=== PATIENT | male | born 1990 | race Caucasian/White ===

== ENCOUNTER 2019-12-22 09:00 | Inpatient (IN) ==
--- NOTE | 2019-12-22 09:57 | PROVIDER DOCUMENTATION ---
This chart was entered by Ashely Russo Scribe, acting as scribe for Kacy Fletcher CRNP. HPI-General Adult - General Chief Complaint: Extremity Pain Stated Complaint: EXTREMITY PAIN-RIGHT LEG Time Seen by Provider: 12/22/19 09:06 Source: patient Allergies/Adverse Reactions: Patient Allergies Allergy/AdvReac Type Severity Reaction Status Date / Time cefdinir Allergy HIVES Verified 12/22/19 09:37 Penicillins Allergy HIVES Verified 12/22/19 09:37 Home Medications: Home Medication List Medication Instructions Recorded Confirmed Last Taken Type Amlodipine Besylate 1 tab PO DAILY 12/22/19 12/22/19 12/21/19 History Furosemide [Lasix] 1 tab PO DAILY 12/22/19 12/22/19 12/21/19 History Gabapentin 1 cap PO TID 12/22/19 12/22/19 12/21/19 History Potassium Chloride 1 tab PO DAILY 12/22/19 12/22/19 12/21/19 History - History of Present Illness -Gen Adult Nature of Presenting Problems: 29 y/o male presents to the ED with complaint of right leg and foot swelling, pain, and erythema since 0500 this am. The patient states no long trips or flights but states he sits more than he should due to having muscular dystrophy. Denies recent injury but states he did have injury and a large amount of bruising to his right upper posterior leg in August. Location of Pain/Injury: reports: lower extremity (right) Onset/Duration: reports: this morning (0500) Timing: reports: still present Context/Activities at Onset: reports: sleep Modifying Factors: improves with: nothing Associated Symptoms: denies: fever/chills, shortness of breath, vomiting Similar Symptoms Previously?: No Recently seen or treated by another doctor?: No Review of Systems - Adult - REVIEW OF SYSTEMS - ADULT Constitutional: denies: chills, fever, weight loss Eyes: reports: no symptoms reported Ears, Nose, Mouth & Throat: reports: no symptoms reported Cardiovascular: reports: no symptoms reported Respiratory: reports: no symptoms reported Gastrointestinal: denies: diarrhea, nausea, vomiting Genitourinary: reports: no symptoms reported Musculoskeletal: reports: other (right lower extremity redness, swelling, and pain). denies: back pain, neck pain Integumentary: reports: no symptoms reported Neurological: reports: no symptoms reported Psychiatric: reports: no symptoms reported Endocrine: reports: no symptoms reported Hematologic/Lymphatic: reports: no symptoms reported Allergic/Immunologic: reports: no symptoms reported All Other Systems: Reviewed and Negative Past History - Adult - PAST MEDICAL HISTORY-ADULT Review of Records: reports: Old Records Reviewed, Nursing Assessment Review, Medications Reviewed Major Childhood Illnesses: reports: denies history Cardiovascular: reports: denies history Respiratory: reports: denies history Gastrointestinal: reports: denies history Obstetrical/Gynecological: reports: denies history Genitourinary: reports: denies history Musculoskeletal: reports: denies history Neurological: reports: denies history Endocrine/Immune: reports: denies history Other Conditions: reports: denies history - PRIOR SURGERIES/PROCEDURES Surgical/Procedure History: reports: none - IMMUNIZATION STATUS Childhood Immunizations: See Nurse Assessment Flu Vaccine: See Nurse Assessment - FAMILY HISTORY Family History: reviewed, not pertinent - SOCIAL HISTORY Smoking: quit greater than 1 year Physical Exam-General - PHYSICAL EXAM-ADULT Initial Vital Signs Reviewed: Yes - CONSTITUTIONAL General Appearance: alert, no apparent distress - NECK Neck: full range of motion, supple - MUSCULOSKELETAL Extremity: erythema (right lower leg), swelling (right lower leg and right foot) , tenderness (right lower leg), other (right lower leg warm to touch) - SKIN Integumentary: erythema (right lower leg), swelling (right lower leg and right foot), warm (right lower leg). negative: diaphoresis - NEUROLOGIC Neurologic: grossly normal - PSYCHIATRIC Psych/Mental Status: normal mood/affect, oriented x 3 Progress - PLAN OF CARE/RESULTS Progress/Plan/Lab Results: Vital Signs - 8 hr 12/22/19 09:13 Temperature 99.2 F Pulse Rate 93 H Respiratory Rate 18 Blood Pressure 118/76 O2 Sat by Pulse Oximetry 98 Laboratory Tests 12/22/19 12/22/19 12/22/19 10:12 10:12 10:12 WBC 14.69 H RBC 5.06 Hgb 14.7 Hct 44.0 MCV 87.0 MCH 29.1 MCHC 33.4 RDW Std Deviation 14.1 Plt Count 307 MPV 9.3 Immature Gran % (Auto) 0.2 Neut % (Auto) 81.8 H Lymph % (Auto) 10.4 L Stone % (Auto) 6.4 Eos % (Auto) 1.0 Baso % (Auto) 0.2 Immature Gran # (Auto) 0.03 Neut # (Auto) 12.02 H Lymph # (Auto) 1.53 Stone # (Auto) 0.94 H Eos # (Auto) 0.14 Baso # (Auto) 0.03 D-Dimer, Quantitative Sodium 140 Potassium 3.7 Chloride 100 Carbon Dioxide 25 Anion Gap 15 BUN 6 L Creatinine 0.3 L Estimated GFR/1.73 m2 > 60 BUN/Creatinine Ratio 20 Glucose 106 H Calculated Osmolality 277 Calcium 9.1 Total Bilirubin 1.30 H AST 31 ALT 64 H Alkaline Phosphatase 91 Mhl-D-Cujsbfeivwe Pept 12 Total Protein 7.5 Albumin 4.2 Globulin 3.0 Albumin/Globulin Ratio 1.0 Plasma Lactate 12/22/19 12/22/19 10:12 10:12 WBC RBC Hgb Hct MCV MCH MCHC RDW Std Deviation Plt Count MPV Immature Gran % (Auto) Neut % (Auto) Lymph % (Auto) Stone % (Auto) Eos % (Auto) Baso % (Auto) Immature Gran # (Auto) Neut # (Auto) Lymph # (Auto) Stone # (Auto) Eos # (Auto) Baso # (Auto) D-Dimer, Quantitative < 0.27 Sodium Potassium Chloride Carbon Dioxide Anion Gap BUN Creatinine Estimated GFR/1.73 m2 BUN/Creatinine Ratio Glucose Calculated Osmolality Calcium Total Bilirubin AST ALT Alkaline Phosphatase Goq-I-Vkvfcvvhmdt Pept Total Protein Albumin Globulin Albumin/Globulin Ratio Plasma Lactate 2.6 H Result Diagrams: 12/22/19 10:12 12/22/19 10:12 - XRAY 1 XRAY: Right XRAY Study: Tibia/Fibula (EXAM: LOWER LEG-RIGHT - 12/22/2019 HISTORY: swelling and pain TECHNIQUE: Right lower leg four views COMPARISON: None. FINDINGS: There is no fracture identified. There are no erosive or destructive changes identified. There is no opaque foreign body identified. There is mild calcaneal spurring noted at the Achilles tendon insertion. IMPRESSION: No visible acute bony abnormality. Electronically signed by Clive Taylor 12/22/2019 10:16 AM) XRAY Interpretation: See note - CONSULTS/PCP/HOSPITALIST Notification #1 *Consult/PCP/Hospitalist*: Dr. Tran Time Discussed: 10:59 Reason/Comments: admission Consult Disposition: Will see in ED, Admit Departure - Departure Date of Disposition Decision: 12/22/19 Time of Disposition Decision: 10:53 DIAGNOSIS: Cellulitis Qualifiers: Site of cellulitis: extremity Site of cellulitis of extremity: lower extremity Laterality: right Qualified Code(s): L03.115 - Cellulitis of right lower limb Disposition: ADMITTED INPATIENT 09 Certified Medical Emergency: Emergent Condition: Stable Referrals and Follow-Ups: Jonah Fletcher MD [Primary Care Provider] - - Critical Care Note This patient required my direct & personal management of CC.: No Attestation - Physician/ VELASQUEZ Attestation Patient care was provided by Advanced Practice Provider:: Yes Advanced Practice Provider:: Kacy Fletcher Advanced Practice Provider documentation review:: The Mid-level provider documentation, treatment plan and medical decision making was reviewed by the physician who agrees with all treatment and medical decision making by the MLP. The physician spent face to face time with patient:: Yes Advanced Practice Provider documentation review:: Supervising physician onsite and consulted in the evaluation and care of this patient. The physician did have a face to face encounter with the patient. This chart was documented by the indicated scribe, (Ashely Russo, Rupali) and accurately reflects the services I performed and decisions made by me, Kacy Fletcher CRNP, as attested by the provider's signature.
--- NOTE | 2019-12-22 10:18 | Diag Imaging Result Doc PS360 ---
EXAM: LOWER LEG-RIGHT - 12/22/2019 HISTORY: swelling and pain TECHNIQUE: Right lower leg four views COMPARISON: None. FINDINGS: There is no fracture identified. There are no erosive or destructive changes identified. There is no opaque foreign body identified. There is mild calcaneal spurring noted at the Achilles tendon insertion. IMPRESSION: No visible acute bony abnormality. Electronically signed by Clive Taylor 12/22/2019 10:16 AM
[2019-12-22] MEDS ORDERED: TYLENOL PO ONE (10:21)
[2019-12-22] MEDS ORDERED: NS 1,000 ML IV ONE (10:23)
[2019-12-22] MEDS ORDERED: VANCOMYCIN 1 GM/NS 1 GM/250 ML IVPB IV ONE ×2 (10:23→11:30)
[2019-12-22 10:27] LABS: BASO# 0.03 X1000 (0.0-0.2); BASO% 0.2 % (0.0-0.8); EOS# 0.14 X1000 (0.0-0.7); HEMOGLOBIN 14.7 g/dL (14.0-18.0); IMM GRAN# 0.03 X1000 (0.0-0.04); IMM GRAN% 0.2 % (0.0-0.5); LYMPH# 1.53 X1000 (1.2-3.4); LYMPH% 10.4 % (20.5-51.1); MCH 29.1 PG (27-31); MCHC 33.4 g/dL (33-37); MONO# 0.94 X1000 (0.11-0.59); MONO% 6.4 % (1.7-9.3); MPV 9.3 FL (7.4-10.4); NEUT# 12.02 X1000 (1.4-6.5); NEUT% 81.8 % (42.2-75.2); PLT 307 X1000 (130-400); RBC 5.06 XMIL (4.7-6.1); RDW 14.1 % (11.5-14.5); WBC 14.69 X1000 (4.8-10.8)
[2019-12-22 10:46] LABS: AGAP 15; ALBUMIN 4.2 g/dL (3.5-5.0); ALKALINE PHOSPHATASE 91 U/L (32-122); BUN 6 mg/dL (8-22); CALCIUM 9.1 mg/dL (8.8-10.2); CHLORIDE 100 mmol/L (98-107); COSMO 277; CREATININE 0.3 mg/dL (0.7-1.2); ESTIMATED GFR > 60; GLUCOSE 106 mg/dL (70-104); GOT 31 U/L (10-34); GPT 64 U/L (10-44); POTASSIUM 3.7 mmol/L (3.5-5.1); SODIUM 140 mmol/L (136-145); TCO2 25 mmol/L (25-35); TOTAL PROTEIN 7.5 g/dL (6.3-8.3)
[2019-12-22] MEDS ORDERED: TYLENOL PO PRN (11:01)
[2019-12-22] MEDS ORDERED: ZOFRAN IV PRN (11:01)
[2019-12-22 11:11] LABS: URINE SOURCE CLEAN CATCH
[2019-12-22 11:13] LABS: BILIRUBIN URINE NEGATIVE (NEGATIVE); BLOOD URINE NEGATIVE (NEGATIVE); COLOR YELLOW; GLUCOSE URINE NEGATIVE (NEGATIVE); KETONE URINE NEGATIVE (NEGATIVE); LEUKOCYTES URINE NEGATIVE (NEGATIVE); NITRITE URINE NEGATIVE (NEGATIVE); PH URINE 8.5; PROTEIN URINE NEGATIVE (NEGATIVE); SP GRAVITY URINE 1.017; TURBIDITY URINE CLEAR (CLEAR); UROBILINOGEN URINE NORMAL (NORMAL)
[2019-12-22] MEDS ORDERED: VANCOMYCIN IV PER PHARMACY MISC SCH (11:15)
[2019-12-22] MEDS ORDERED: NS 1,000 ML IV SCH (11:15)
[2019-12-22 11:17] LABS: INR 0.95; PROTIME 13.2 Seconds (11.0-16.0)
[2019-12-22 11:18] LABS: PTT 27.5 Seconds (22.3-41.8)
[2019-12-22 11:20] LABS: UR EPITHELIAL CELLS <10 /HPF (<10); URINE BACTERIA 1+ /HPF; URINE CASTS NONE SEEN; URINE CRYSTALS NONE SEEN; URINE RBC <10 /HPF (<10); URINE SMALL ROUND CELLS NONE SEEN; URINE WBC <10 /HPF (<10); URINE YEAST NONE SEEN
[2019-12-22 11:41] LABS: CK INDEX 1.7 (0.0-2.5); CK-MB 14.58 ng/mL (0.0-5.0)
--- NOTE | 2019-12-22 11:41 | Diag Imaging Result Doc PS360 ---
EXAM: CHEST-PORTABLE - 12/22/2019 HISTORY: elevated lactate and WBC, fever TECHNIQUE: Portable chest COMPARISON: 02/20/2018 chest two views FINDINGS: Heart size is normal. The lungs appear clear. There is no pleural effusion or pneumothorax identified. IMPRESSION: No evidence of acute disease. Electronically signed by Clive Taylor 12/22/2019 11:39 AM
--- NOTE | 2019-12-22 12:55 | HISTORY AND PHYSICAL ---
ADDENDUM: The patient was seen and examined by myself. Full note dictated and discussed with nurse practitioner. The patient presented to the hospital with right lower extremity leg swelling and pain. States it has been going on for a couple of days, but this morning it was due too difficult for him to stand, and therefore he came to the ER. He does have some erythema of his right luz area. We are going to admit him to the hospital. He is allergic to penicillin and cephalosporins. He will need vancomycin and Levaquin, and will follow. cc: Sam Tran MD
[2019-12-22] MEDS ORDERED: NEURONTIN PO SCH (13:00)
--- NOTE | 2019-12-22 13:30 | HISTORY AND PHYSICAL ---
PRIMARY CARE PHYSICIAN: Dr. Jonah Fletcher. CHIEF COMPLAINT: Right leg and foot swelling, pain, and redness that began around 5 a.m. this morning and progressively worsened. HISTORY OF PRESENTING ILLNESS: This is a 29-year-old male who presents to [facility] ER with complaints of right leg and foot swelling, pain and redness that began around 5 a.m. this morning and progressively worsened. He states he has not had any long trips or flights, but that he does sit more than he probably should due to having muscular dystrophy. He denies any recent injury, except back in August he had a large bruise to his right upper posterior leg. His workup showed right leg to have erythema, edema, tenderness to touch. His white blood cell count was 14.69. D-dimer was negative. His creatine kinase was 871. CK-MB of 14.58, with a troponin T high sensitivity of 60. We did a lower extremity x-ray of his right leg that showed no visible acute bony abnormality. Chest x-ray showed no evidence of acute disease, so he will be admitted for further evaluation and treatment. PAST MEDICAL HISTORY: Muscular dystrophy, hypertension. PAST SURGICAL HISTORY: He had a muscle biopsy, wisdom teeth removed. FAMILY HISTORY: Reviewed and noncontributory. SOCIAL HISTORY: He is a former smoker. Denies any alcohol or illicit drug use. ALLERGIES: Cefdinir and penicillin. HOME MEDICATIONS: He takes amlodipine 5 mg p.o. daily, Lasix 20 mg p.o. daily, gabapentin 300 mg p.o. t.i.d., and potassium 10 mEq p.o. daily. IMAGING AND LABORATORY DATA: Laboratory data showed a white blood cell count of 14.69, hemoglobin 14.7, hematocrit 44, platelets 307,000. PT and INR of 13.2 and 0.95, with a D-dimer of less than 0.27. Sodium 140, potassium 3.7, chloride 100, CO2 of 25, BUN of 6, creatinine 0.3, glucose 106. Creatine kinase of 871. CK-MB of 14.58. Troponin T high sensitivity of 60. Plasma lactate of 2.6. Urinalysis was negative. Right lower extremity x-ray showed no visible acute bony abnormality. Chest x-ray showed no evidence of acute disease. REVIEW OF SYSTEMS: He denied any fever, chills, blurred vision, dizziness, chest pain, coughing, shortness of breath. He denied any abdominal pain, constipation, diarrhea, burning or hurting with urination. He does have pain to his right lower extremity with swelling and redness. PHYSICAL EXAMINATION: VITAL SIGNS: On arrival, he had a temperature of 99.2 degrees, pulse 93, respirations 18, blood pressure 118/76, saturating 98% on room air. About an hour after arriving, his temp did go up to 101.1, is now down to 99.4. GENERAL: This is a 29-year-old male, lying in the bed, answers questions appropriately. HEENT: Normocephalic, atraumatic. Normal ENT inspection. Oropharynx and nares are clear. Eyes: Pupils are equal, round, reactive to light and accommodation. Extraocular movements are intact. NECK: Normal inspection. Normal range of motion. LUNGS: Clear to auscultation bilaterally with equal lung expansion and chest wall movement. HEART: Regular rate and rhythm. No murmurs, rubs, or gallops. ABDOMEN: Soft, nontender, nondistended. Bowel sounds are present x4 quadrants. MUSCULOSKELETAL: His right lower leg is noted to have erythema, edema, warmth to touch, tenderness to touch. NEUROLOGICAL: The cranial nerves II through XII appear grossly intact. ASSESSMENT: 1. Right lower extremity cellulitis. 2. Leukocytosis secondary to #1. 3. Rhabdomyolysis, mild. 4. Muscular dystrophy. Aware. PLAN: He is being admitted to the medical unit. Placed on a regular diet, O2 per protocol. He will be placed on Levaquin 500 mg IV every 24 hours, normal saline 75 mL an hour, vancomycin per pharmacy protocol. Continue home medications. Recheck CBC, CMP, magnesium, lactate serial series, and will recheck cardiac enzymes in the a.m. Further orders after seen by attending. Dictated by KILEY Pennington for Sam Tran MD cc: KILEY Pennington MD Robert Allen, MD
[2019-12-22] MEDS: LEVAQUIN 500 MG/D5W 500 MG/100 ML IVPB IV SCH (13:34)
[2019-12-22] MEDS: NEURONTIN PO PRN (21:03)
[2019-12-23] MEDS: VANCOMYCIN 2,000 MG in NS 500 ML IV SCH ×2 (00:40→12:55)
[2019-12-23 06:34] LABS: HEMATOCRIT 40.5 % (42.0-52.0); HEMOGLOBIN 13.3 g/dL (14.0-18.0); MCH 29.2 PG (27-31); MCHC 32.8 g/dL (33-37); MCV 88.8 FL (81-99); MPV 9.4 FL (7.4-10.4); RBC 4.56 XMIL (4.7-6.1); RDW 14.1 % (11.5-14.5); WBC 8.97 X1000 (4.8-10.8)
[2019-12-23 06:49] LABS: AGAP 13; ALBUMIN 3.3 g/dL (3.5-5.0); ALKALINE PHOSPHATASE 74 U/L (32-122); BUN 7 mg/dL (8-22); CALCIUM 8.4 mg/dL (8.8-10.2); CHLORIDE 106 mmol/L (98-107); COSMO 279; CREATININE 0.2 mg/dL (0.7-1.2); ESTIMATED GFR > 60; GLUCOSE 86 mg/dL (70-104); GOT 19 U/L (10-34); GPT 43 U/L (10-44); MAGNESIUM 1.8 mg/dL (1.5-2.7); POTASSIUM 3.5 mmol/L (3.5-5.1); SODIUM 141 mmol/L (136-145); TCO2 22 mmol/L (25-35); TOTAL PROTEIN 6.1 g/dL (6.3-8.3)
[2019-12-23 07:11] LABS: CK INDEX 1.3 (0.0-2.5); CK-MB 5.84 ng/mL (0.0-5.0)
[2019-12-23] MEDS: LASIX PO SCH (08:13)
[2019-12-23] MEDS: NEURONTIN PO PRN (08:13)
[2019-12-23] MEDS: NORVASC PO SCH (08:13)
[2019-12-23] MEDS: KLOR-CON PO SCH (08:14)
[2019-12-23] MEDS: LEVAQUIN 500 MG/D5W 500 MG/100 ML IVPB IV SCH (11:18)
--- NOTE | 2019-12-23 18:14 | PROGRESS NOTE ---
DATE: 12/23/2019 SUBJECTIVE: Patient reports feeling fine. Redness and swelling is getting better. OBJECTIVE: Vitals: Temperature 98, degrees, heart rate 81, respiratory rate 18, blood pressure 111/75, O2 saturation 97% on room air. General: This is a 29-year-old male lying in bed in no acute distress. Cardiovascular: S1, S2 heard. No murmurs, gallops, or rubs. Regular rate and rhythm. Respiratory: Clear bilaterally to auscultation. No work of breathing or using accessory muscles. Abdomen: Soft, nontender to palpation. Bowel sounds present, no organomegaly. Extremity: Right leg has erythema, edema, is warm to touch, tenderness to palpation. Neurological: Patient alert, oriented x3, moves 4 extremities. LABORATORY DATA: White cell count 8.97, hemoglobin 13.3, hematocrit 40.5, platelet 250,000 with normal BMP and total bilirubin 1.2, creatine kinase 156. ASSESSMENT AND PLAN: 1. Right lower extremity cellulitis. Will continue with current antibiotics in this case Levaquin and vancomycin. Clinically patient reports feeling much better not spiking any fever and white cell count is back to normal today so at this point will continue with the same management. I think this patient may need to stay for at least 24 to 48 hours to get a good clinical response. Will continue with IV fluids. 2. Rhabdomyolysis. There has been a very mild elevation of CK, I do not think is causing any problem, renal function is okay so at this point will continue with IV fluids. 3. Disposition. Patient is having good response to antibiotic therapy vancomycin and Levaquin, will continue with same therapy and will discharge him most likely next 24 to 48 hours. cc: Austin Chadwick MD
[2019-12-24] MEDS: VANCOMYCIN 2,000 MG in NS 500 ML IV SCH (00:29)
[2019-12-24 07:25] LABS: AGAP 13; BUN 10 mg/dL (8-22); CALCIUM 8.6 mg/dL (8.8-10.2); CHLORIDE 103 mmol/L (98-107); COSMO 278; CREATININE 0.2 mg/dL (0.7-1.2); ESTIMATED GFR > 60; GLUCOSE 90 mg/dL (70-104); POTASSIUM 3.5 mmol/L (3.5-5.1); SODIUM 140 mmol/L (136-145); TCO2 24 mmol/L (25-35)
[2019-12-24 07:28] LABS: BASO# 0.03 X1000 (0.0-0.2); BASO% 0.4 % (0.0-0.8); EOS# 0.29 X1000 (0.0-0.7); EOS% 3.5 % (0.0-10.0); HEMATOCRIT 41.7 % (42.0-52.0); HEMOGLOBIN 13.5 g/dL (14.0-18.0); IMM GRAN# 0.01 X1000 (0.0-0.04); IMM GRAN% 0.1 % (0.0-0.5); LYMPH# 2.96 X1000 (1.2-3.4); LYMPH% 35.5 % (20.5-51.1); MCH 28.2 PG (27-31); MCHC 32.4 g/dL (33-37); MCV 87.2 FL (81-99); MONO# 1.02 X1000 (0.11-0.59); MONO% 12.2 % (1.7-9.3); MPV 9.3 FL (7.4-10.4); NEUT# 4.03 X1000 (1.4-6.5); NEUT% 48.3 % (42.2-75.2); PLT 256 X1000 (130-400); RBC 4.78 XMIL (4.7-6.1); WBC 8.34 X1000 (4.8-10.8)
[2019-12-24] MEDS ORDERED: DOXYCYCLINE PO SCH (09:00)
[2019-12-24] MEDS ORDERED: LEVAQUIN PO SCH (09:00)
[2019-12-24] MEDS: NORVASC PO SCH (09:07)
[2019-12-24] MEDS: KLOR-CON PO SCH (09:07)
[2019-12-24] MEDS: LASIX PO SCH (09:07)
[2019-12-24 15:18] VITALS: BP 129/91
--- NOTE | 2019-12-25 09:44 | DISCHARGE SUMMARY ---
ADMISSION DATE: 12/22/2019 DISCHARGE DATE: 12/24/2019 DISCHARGE DIAGNOSES: 1. Right lower extremity cellulitis, improving. 2. Rhabdomyolysis, resolved. CONSULTATIONS: None. PROCEDURES: None. BRIEF HOSPITAL COURSE: The patient is a 29-year-old male who presented to the hospital with cellulitis, right lower extremity. Thankfully, this continued to improve. He was admitted and placed on vancomycin and Levaquin. On discharge, his redness, although still present, was dramatically improved. His pain, swelling, and warmth also were improved. DISPOSITION: The patient will be discharged home on doxycycline and Levaquin for the next 5 days, take a total of 7-day course. He will follow up with primary care, Dr. Fletcher, for re-evaluation in 1 week. No other changes were made on his diet, activity, or medications otherwise. cc: Sam Tran MD
== END 2019-12-24 16:37 | disposition home or self-care (01) | DRG 603 ==
LOC: P.ED 09:00 → SUATTDRO 09:01 → P.MEDSURG 11:27
PROVIDERS: ATTEND Family Medicine